=== PATIENT | male | born 1965 | race Caucasian/White ===

== ENCOUNTER 2023-03-09 16:13 | Outpatient (CLI) | payer OTHER ==
--- NOTE | 2023-03-09 17:26 | Ultrasound Report ---
PROCEDURE: Head or Neck Soft Tissue INDICATIONS: THYROID NODULE TECHNIQUE: Real-time scanning was performed of the thyroid gland, with image documentation. COMPARISON: None FINDINGS: Right: Thyroid lobe measures 5 x 1.5 x 1.8 cm, and is heterogeneous in echotexture. Left: Thyroid lobe measures 6.9 x 1.5 x 1.9 cm, and is heterogeneous in echotexture. Isthmus: 4 mm thick. Nodule number: One Location: Right inferior pole Size: 0.8 cm. Composition: Solid (2 points). Echogenicity: Isoechoic (1 point). Shape: wider than tall. Margins: Smooth (0 points). Echogenic foci: None (0 points). Total points: 3 ACR TI-RADS category: Mildly suspicious (3 points). Nodule number: Two Location: Left midpole Size: 0.7 cm. Composition: Solid (2 points). Echogenicity: Isoechoic (1 point). Shape: wider than tall. Margins: Smooth (0 points). Echogenic foci: None (0 points). Total points: 3 ACR TI-RADS category: Mildly suspicious (3 points). IMPRESSION: Mildly enlarged, heterogeneous thyroid suspicious for underlying thyroiditis. Mild suspicion thyroid nodules, which do not require follow-up based on size criteria. ACR TI-RADS definitions and recommendations: TI-RADS 1 (benign): 0 points. FNA not needed. TI-RADS 2 (not suspicious): 2 points. FNA not needed. TI-RADS 3 (mildly suspicious): 3 points. "FNA if 2.5 cm or larger, follow up if 1.5 cm or larger (at 1, 3, and 5 years). TI-RADS 4 (moderately suspicious): 4-6 points. "FNA if 1.5 cm or larger, follow up if 1 cm or larger (at 1, 2, 3, and 5 years). TI-RADS 5 (highly suspicious): 7 points or more. "FNA if 1 cm or larger, follow up if 0.5 cm or larger (every year for 5 years). Reviewed by: Charles Pollard on 03/09/2023 5:25 PM PDT Approved by: Charles Pollard on 03/09/2023 5:25 PM PDT Station ID: [id number]
== END 2023-03-09 16:14 | disposition home or self-care (01) ==
LOC: DI 16:13
PROVIDERS: ATTEND Physician Assistant
DX: E04.2 Nontoxic multinodular goiter (principal); E04.9 Nontoxic goiter, unspecified

== ENCOUNTER 2024-04-22 07:22 | Outpatient (CLI) | payer OTHER ==
[2024-04-22 15:11] LABS: BASOPHILS % (AUTO) 0.8 %; EOSINOPHILS # (AUTO) 0.2 10^3/uL (0.0-0.7); EOSINOPHILS % (AUTO) 3.4 %; HCT - HEMATOCRIT 44.4 % (42.0-52.0); HGB - HEMOGLOBIN 15.1 g/dL (14.0-18.0); LYMPHOCYTES # (AUTO) 1.5 10^3/uL (1.5-3.5); MEAN CORPUSCULAR HEMOGLOBIN 31.5 pg (27.0-31.0); MEAN CORPUSCULAR VOLUME 92.5 fL (80.0-94.0); MEAN PLATELET VOLUME 9.9 fL (7.4-11.4); MONOCYTES # (AUTO) 0.4 10^3/uL (0.0-1.0); MONOCYTES % (AUTO) 7.5 %; NEUTROPHILS % (AUTO) 58.1 %; PLT - PLATELET COUNT 209 10^3/uL (130-450); RED CELL DISTRIBUTION WIDTH 12.1 % (12.0-15.0); WHITE BLOOD COUNT 5.1 x10^3/uL (4.8-10.8)
[2024-04-22 15:48] LABS: ALBUMIN 4.3 g/dL (3.2-5.5); ALBUMIN/GLOBULIN RATIO 1.7 (1.0-2.2); ALKALINE PHOSPHATASE 74 IU/L (42-121); ALT ALANINE AMINOTRANSFERASE 29 IU/L (10-60); AST ASPARTATE AMINOTRANSFERASE 20 IU/L (10-42); BILIRUBIN,TOTAL 0.7 mg/dL (0.2-1.0); BUN - BLOOD UREA NITROGEN 17 mg/dL (6-20); CALCIUM 9.2 mg/dL (8.5-10.3); CARBON DIOXIDE - CO2 25 mmol/L (21-32); CHLORIDE 107 mmol/L (101-111); CHOL/HDL RATIO 4.9 (<5.0); CHOLESTEROL 254 mg/dL; CREATININE 1.1 mg/dL (0.6-1.3); GFR - MDRD 69 (>89); GLUCOSE 81 mg/dL (74-104); HDL CHOLESTEROL 52 mg/dL; LDL CHOLESTEROL,CALCULATED 170 mg/dL; LDL/HDL RATIO 3.3 (<3.6); SODIUM 138 mmol/L (135-145); TOTAL PROTEIN 6.8 g/dL (6.4-8.9); TRIGLYCERIDES 159 mg/dL; VLDL CHOLESTEROL 32 mg/dL
[2024-04-22 16:04] LABS: THYROID STIMULATING HORMONE 6.47 uIU/mL (0.34-5.60)
[2024-04-22 20:17] LABS: ESTIMATED AVERAGE GLUCOSE 94 mg/dL (70-100); HEMOGLOBIN A1c% 4.9 % (4.27-6.07)
== END 2024-04-22 07:23 | disposition home or self-care (01) ==
LOC: LAB.S 07:22
PROVIDERS: ATTEND Physician Assistant
DX: E78.5 Hyperlipidemia, unspecified (principal); Z13.9 Encounter for screening, unspecified; Z83.3 Family history of diabetes mellitus; Z12.5 Encounter for screening for malignant neoplasm of prostate; E03.9 Hypothyroidism, unspecified
CPT/HCPCS: 36415; 80053; 80061; 83036; 83721; 84153; 84439; 84443; 85025

== ENCOUNTER 2024-05-10 06:59 | Outpatient (CLI) | payer OTHER ==
--- NOTE | 2024-05-10 14:09 | CT Report ---
PROCEDURE: CT heart coronary calcium scoring without contrast TECHNIQUE: MDCT non-contrast cardiac gated images were obtained from the jules through the inferior margin of the heart. Calcium score was obtained by post-processing with external software. Automated exposure control was used to reduce patient radiation dose. INDICATION: CAD screening, low or intermediate risk COMPARISON: None FINDINGS: Image quality: Excellent Agatston method: Total calcium score: 0 L main: 0 LAD: 0 LCX: 0 RCA: 0 Heart findings: Mitral annular calcifications: No significant calcifications. Aortic valve: No significant valvular calcifications. Chambers: No significant enlargement on this non-dynamic study. Pericardium: No effusion. Other findings (note the chest is incompletely imaged on this limited non-contrast study): Lungs and pleura: No pleural effusion. No actionable lung nodules. Mediastinum: No pathologic lymphadenopathy. Upper abdomen: Partially seen, unremarkable. Bones: No acute or suspicious abnormality. IMPRESSION: Coronary calcium scores as above. Incidentals: None significant. Coronary artery calcium scores have been identified as an independent risk factor for future acute co ronary syndromes and correlate with the quantity of coronary atherosclerotic plaque. However, they do not correlate directly with the degree of stenosis. A low score does not exclude a significant coron janeth artery stenosis. Risk of future coronary events should be assessed with individual patient risk factors and medical hi story. Consider correlation with risk percentiles using the RAMIREZ (Multi-Ethnic Study of Atheroscleros is) calculator. CAC-DRS Categories: A0: 0, very low risk, consider repeat coronary calcium study every 3-7 years for surveillance. A1: 1-99, mildly increased risk, consider moderate-intensity statin A2: 100-299: moderately increased risk, consider moderate to high-intensity statin + ASA 81mg A3: >300: moderately to severely increased risk, consider high-intensity statin + ASA 81mg Reviewed by: Flavio Bunn MD on 05/10/2024 2:08 PM PDT Approved by: Flavio Bunn MD on 05/10/2024 2:08 PM PDT Station ID: [id number]
== END 2024-05-10 07:00 | disposition home or self-care (01) ==
LOC: DI 06:59
PROVIDERS: ATTEND Physician Assistant
DX: E78.5 Hyperlipidemia, unspecified (principal)